=== PATIENT | female | born 1985 | race Caucasian/White ===

== ENCOUNTER 2020-05-31 11:52 | Inpatient (IN) ==
[2020-05-31] MEDS ORDERED: ASPIRIN CHEW 81 MG TABLET PO STA (12:29)
[2020-05-31] MEDS ORDERED: NITROGLYCERIN SL 0.4 MG TABLET SL STA (12:29)
[2020-05-31] MEDS ORDERED: SODIUM CHLORIDE 0.9% 1,000 ML IV STA (12:29)
[2020-05-31] MEDS ORDERED: ONDANSETRON 4 MG/2 ML VIAL IV STA (12:29)
[2020-05-31 13:09] LABS: Basophils % 0.4 % (0.0-0.8); Hematocrit 46.6 VOL% (35.7-47.0); Hemoglobin 14.8 GM/DL (12.0-16.0); Immature Granulocytes % 0.9 %; Lymphocytes % 17.7 % (21.3-54.2); Mean Corpuscular HGB Conc 31.8 GM/DL (32-36); Mean Corpuscular Volume 102.4 FL (87-102); Mean Platelet Volume 9.8 FL (9.6-12.0); Monocytes % 3.3 % (1.7-12.7); Neutrophils % 77.7 % (38.7-73.9); Platelet Count 491 T/CUMM (130-400); Red Blood Count 4.55 MC/CUMM (3.8-5.5); Red Cell Distribution Width 13.7 % (9.3-17.3); White Blood Count 11.1 T/CUMM (4-12)
[2020-05-31 13:11] LABS: Bilirubin,Urine Negative (Negative); Blood, Urine Large mg/dL (Negative); Glucose,Urine (UA) Negative (Negative); Ketones,Urine Negative (Negative); Mucus,Urine Many /LPF (Occasional); Nitrite,Urine Negative (Negative); Protein,Urine 100 MG/DL; RBC,Urine 1190 /HPF (0-4); Squamous Epithelial Cell,Urine Occasional /HPF (0-10); Urine Appearance CLOUDY (Clear); Urine Color Amber (Yellow); Urine Specific Gravity 1.028 (1.001-1.035); Urine Urobilinogen < 2.0 EU/DL (0.2-1.0); WBC,Urine 285 /HPF (0-6)
[2020-05-31 13:12] LABS: Barbiturates Screen,Urine Negative (Negative); Benzodiazepines Screen,Urine Negative (Negative); Cannabinoid Screen,Urine Negative (Negative); Opiate Screen,Urine Positive (Negative); Phencyclidine Screen,Urine Negative (Negative)
[2020-05-31] MEDS ORDERED: MORPHINE 4 MG/1 ML VIAL IV ONE (13:29)
[2020-05-31 13:31] LABS: Albumin 4.8 G/DL (3.4-5.0); Bilirubin,Total 0.5 MG/DL (0.2-1.0); Calcium 10.2 MG/DL (8.5-10.1); Osmolality,Calculated 278.5 MOS/KG (273-304); Total Protein 8.9 G/DL (6.4-8.3)
[2020-05-31] MEDS ORDERED: PROMETHAZINE 25 MG/1 ML VIAL IM STA (14:53)
[2020-05-31] MEDS ORDERED: KETOROLAC 30 MG/1 ML VIAL IV STA (14:53)
[2020-05-31] MEDS ORDERED: ACETAMINOPHEN 325 MG TABLET PO PRN (17:01)
[2020-05-31] MEDS ORDERED: LEVOFLOXACIN INJ 750 MG in PREMIX 1 EACH IV STA (17:01)
[2020-05-31] MEDS ORDERED: INFLUENZA VIRUS VACCINE 0.5 ML SYRINGE IM ONE (17:30)
[2020-05-31] MEDS: DEXTROSE 5% LACTATED RINGERS 1,000 ML IV SCH (17:49)
[2020-06-01] MEDS: DEXTROSE 5% LACTATED RINGERS 1,000 ML IV SCH ×2 (03:41→15:06)
[2020-06-01] MEDS ORDERED: PANTOPRAZOLE 40 MG TABLET PO SCH (09:00)
[2020-06-01] MEDS ORDERED: TISSUE ADHESIVE 1 EACH APPLICATOR TOP ONE (09:41)
[2020-06-01] MEDS ORDERED: VANCOMYCIN INJ 750 MG in SODIUM CHLORIDE 0.9% 250 ML IV ONE (10:00)
[2020-06-01] MEDS ORDERED: ALBUTEROL/IPRATROPIUM 3 ML NEB RESP TX ONE (10:07)
[2020-06-01] MEDS ORDERED: propofoL 200 MG/20 ML VIAL IV ONE (10:27)
[2020-06-01] MEDS ORDERED: MIDAZOLAM 2 MG/2 ML VIAL ONE (10:27)
[2020-06-01] MEDS ORDERED: fentaNYL 250 MCG/5 ML VIAL ONE (10:27)
[2020-06-01] MEDS ORDERED: ROCURONIUM 50 MG/5 ML VIAL IV ONE (10:27)
[2020-06-01] MEDS ORDERED: LIDOCAINE 2% 5 ML VIAL ONE (10:27)
[2020-06-01] MEDS ORDERED: ONDANSETRON 4 MG/2 ML VIAL ONE (11:19)
[2020-06-01] MEDS ORDERED: METOPROLOL TARTRATE 5 MG/5 ML VIAL IV ONE (11:19)
[2020-06-01] MEDS ORDERED: SEVOFLURANE 1 UNIT/15 MINUTE INH ONE ×4 (11:19→12:25)
[2020-06-01] MEDS ORDERED: DEXAMETHASONE 4 MG/1 ML VIAL ONE (11:19)
[2020-06-01] MEDS ORDERED: LACTATED RINGERS 1,000 ML IV ONE ×2 (11:28→12:21)
[2020-06-01] MEDS ORDERED: GLYCOPYRROLATE 0.4 MG/2 ML VIAL ONE (11:28)
[2020-06-01] MEDS ORDERED: NEOSTIGMINE 10 MG/10 ML VIAL ONE ×3 (11:28)
[2020-06-01] MEDS ORDERED: GLUCAGON 1 MG VIAL ONE (12:00)
[2020-06-01] MEDS ORDERED: ONDANSETRON 4 MG/2 ML VIAL IV PRN (12:51)
[2020-06-01] MEDS: HYDROmorphone 2 MG/1 ML VIAL IV PRN ×5 (12:59→16:16)
[2020-06-01] MEDS ORDERED: hydrALAZINE 20 MG/1 ML VIAL ONE (13:48)
[2020-06-01] MEDS ORDERED: PROMETHAZINE 25 MG/1 ML VIAL ONE (13:48)
[2020-06-01] MEDS ORDERED: hydrALAZINE 20 MG/1 ML VIAL IV ONE (13:49)
[2020-06-01] MEDS ORDERED: PROMETHAZINE INJ 25 MG in SODIUM CHLORIDE 0.9% 50 ML IV ONE (13:50)
[2020-06-01] MEDS: ONDANSETRON 4 MG/2 ML VIAL IV PRN (15:05)
[2020-06-01] MEDS ORDERED: ZALEPLON 5 MG CAPSULE PO PRN (20:45)
[2020-06-01] MEDS ORDERED: VANCOMYCIN IV ONE (22:00)
[2020-06-01] MEDS ORDERED: SODIUM CHLORIDE 0.9% IV ONE (22:00)
[2020-06-02] MEDS: DEXTROSE 5% LACTATED RINGERS 1,000 ML IV SCH ×2 (00:41→10:17)
[2020-06-02] MEDS: ONDANSETRON 4 MG/2 ML VIAL IV PRN (01:00)
[2020-06-02] MEDS: HYDROmorphone 2 MG/1 ML VIAL IV PRN ×2 (03:38→08:02)
[2020-06-02 06:25] LABS: Basophils % 0.2 % (0.0-0.8); Hematocrit 34.9 VOL% (35.7-47.0); Hemoglobin 11.2 GM/DL (12.0-16.0); Immature Granulocytes % 0.5 %; Immature Granulocytes Absolute 0.05 #; Lymphocytes # 3.3 10*3/uL (1.4-4.0); Lymphocytes % 35.1 % (21.3-54.2); Mean Corpuscular HGB Conc 32.1 GM/DL (32-36); Mean Corpuscular Volume 101.5 FL (87-102); Mean Platelet Volume 9.8 FL (9.6-12.0); Neutrophils % 57.2 % (38.7-73.9); Platelet Count 322 T/CUMM (130-400); Red Blood Count 3.44 MC/CUMM (3.8-5.5); Red Cell Distribution Width 13.5 % (9.3-17.3); White Blood Count 9.4 T/CUMM (4-12)
[2020-06-02] MEDS ORDERED: PANTOPRAZOLE 40 MG VIAL IV SCH (06:30)
[2020-06-02 06:38] LABS: PT Patient Result 11.2 SECS (9.8-11.9)
[2020-06-02 07:06] LABS: Albumin 3.2 G/DL (3.4-5.0); Bilirubin,Total 0.5 MG/DL (0.2-1.0); Calcium 8.9 MG/DL (8.5-10.1); Osmolality,Calculated 276.4 MOS/KG (273-304); Potassium 2.8 MMOL/L (3.5-5.1); Total Protein 6.1 G/DL (6.4-8.3)
[2020-06-02 07:20] VITALS: BP 132/92
[2020-06-02] MEDS ORDERED: POTASSIUM CHLORIDE RIDER 10 MEQ in PREMIX 1 EACH IV ONE (07:33)
[2020-06-02] MEDS ORDERED: INDOMETHACIN SUPP 50 MG SUPP RECTAL ONE (08:00)
[2020-06-02] MEDS ORDERED: LACTATED RINGERS 1,000 ML IV SCH (08:00)
[2020-06-02] MEDS: POTASSIUM CHLORIDE RIDER 10 MEQ in PREMIX 1 EACH IV SCH ×2 (08:02→10:17)
[2020-06-03] MEDS ORDERED: LACTATED RINGERS 1,000 ML IV SCH (08:00)
[2020-06-03] MEDS ORDERED: INDOMETHACIN SUPP 50 MG SUPP RECTAL ONE (08:00)
== END 2020-06-02 09:55 | disposition left against medical advice (07) | DRG 263 ==
LOC: N.EDINP 11:52 → N.ED 11:52 → N.5E 16:52
PROVIDERS: ADMIT Student in an Organized Health Care Education/Training Program; ATTEND Student in an Organized Health Care Education/Training Program
PROC: LAPCHOL (2020-06-01 10:42)